=== PATIENT | male | born 1940 | race Caucasian/White ===

== ENCOUNTER 2017-11-18 21:33 | Inpatient (IN) | payer OTHER ==
[~2017-11-18] VITALS: Ht 167.6 cm; Wt 62.1 kg
[~2017-11-18 21:33] MED LIST: ACID CONTROL150 MG PO; CO Q10200 MG PO; COZAAR25 MG PO; FLOMAX0.4 MG PO; LO-DOSE ASPIRIN81 M2 PO; LONITEN2.5 MG PO; ONE DAILY MUL400 MCG PO; PRAVACHOL20 MG PO; PROSCAR5 MG PO; SLOW RELEASE I142 M1 PO; SLOW-MAG,MAG DE64 MG PO; [UNRECOGNIZED DRUG - OTHER] PO
[2017-11-19] VITALS (15 sets, daily range): BP systolic 93–123; BP diastolic 47–68
[2017-11-20 00:02] VITALS: BP 72/56
[2017-11-20 01:01] VITALS: BP 82/42
[2017-11-20 04:00] VITALS: BP 104/53
[2017-11-20 08:00] VITALS: BP 124/68
[2017-11-20] MEDS ORDERED: HYDROCODON-ACE1 EAC7 PO (10:18)
[2017-11-20 12:00] VITALS: BP 125/45
== END 2017-11-20 13:40 | disposition home or self-care (01) | DRG 38 ==
LOC: ENRESERV 21:33 → 2SOUTH 11-19 05:22 → 4WEST 11-19 05:22 → ENRESERV 11-19 09:03 → 4WEST 11-19 10:38 → 2SOUTH 11-19 15:42 → 4WEST 11-20 13:40
DX: I65.22 Occlusion and stenosis of left carotid artery (principal); C91.11 Chronic lymphocytic leukemia of B-cell type in remission; J44.9 Chronic obstructive pulmonary disease, unspecified; I10 Essential (primary) hypertension; I25.10 Atherosclerotic heart disease of native coronary artery without angina pectoris; K21.9 Gastro-esophageal reflux disease without esophagitis; M19.90 Unspecified osteoarthritis, unspecified site; Z87.891 Personal history of nicotine dependence
CPT/HCPCS: 87641; 93005; C1768; J0690; J1644; J1650; J2720; J2795; J3010; J7120